=== PATIENT | female | born 1955 ===

== ENCOUNTER 2017-11-09 21:13 | Emergency (ER) | payer SELFPAY ==
[~2017-11-09] VITALS: Ht 165.1 cm; Wt 88.2 kg
[~2017-11-09 21:13] MED LIST: CEPHALEXIN500 M1 PO; DOXYCYCLINE 10100 MG PO; MOTRIN 200200 MG/TAB PO; NEXIUM 20MG20 MG PO; NO HOME MEDICATIONS; NORCO 325 MG-7.1 TAB PO; OCUFLOX OPHTH DR5 ML OS; PREDNISONE20 MG PO; TOBRADEX EYE O3.5 GM OP; TORADOL 10MG TA10 MG PO; TUSS PO; TYLENOL 500MG500 MG PO; ZITHROMAX Z PA250 MG PO
[2017-11-09 21:30] VITALS: BP 127/77; TEMP 98.2
[2017-11-09 22:49] LABS: COLLECTION METHOD CLEAN CATCH
[2017-11-09 22:55] LABS: MUCOUS Present /lpf; PH 7 (5-8); SQUAMOUS EPITHELIAL 0-2 /hpf; URINE APPEARANCE Clear; URINE BACTERIA None Seen /hpf; URINE BILIRUBIN Negative (NEGATIVE); URINE BLOOD Negative (NEGATIVE); URINE COLOR Straw; URINE GLUCOSE Negative (NEGATIVE); URINE KETONE Negative (NEGATIVE); URINE LEUKOCYTE ESTERASE Negative (NEGATIVE); URINE NITRATE Negative (NEGATIVE); URINE PROTEIN(semi-quant) Negative (NEGATIVE); URINE RBC 0-2 /hpf; URINE UROBILINOGEN Negative (NEGATIVE)
[2017-11-10 00:08] LABS: BASO # 0.1 (0.0-0.2); BASO % 0.5 % (0.0-2.0); EOS # 0.5 (0.0-0.7); EOS % 3.7 % (0-4.0); GRAN # 7.4 (1.4-6.5); GRAN % 57.7 % (42.2-75.2); HEMATOCRIT 44.7 % (37.0-47.0); LYMPH % 30.7 % (20.0-51.0); MEAN CELL VOLUME 88 fl (80.0-100.0); MEAN CORPUSCULAR HEMOGLOBIN 29 pg (27.0-31.0); MEAN CORPUSCULAR HGB CONC 34 g/dl (33.0-37.0); MEAN PLATELET VOLUME 9.7 fl (7.4-10.4); MONO # 0.9 (0.1-0.6); MONO % 7.2 % (1.7-9.3); PLATELET COUNT 233 K/mm3 (130-400); REDCELL DISTRIBUTION WIDTH-CV 14.1 % (11.5-14.5)
[2017-11-10 00:14] LABS: ALANINE AMINOTRANSFERASE 36 U/L (9-52); ALBUMIN 3.6 gm/dL (3.5-5.0); ALKALINE PHOSPHATASE 101 U/L (50-136); ANION GAP 12 mmol/L (7-16); AST,SGOT 20 U/L (15-37); BILIRUBIN,TOTAL 0.2 mg/dL (0.0-1.0); BLOOD UREA NITROGEN 11 mg/dL (7-17); CALCIUM 8.9 mg/dL (8.4-10.2); CARBON DIOXIDE 28 mmol/L (22-30); CHLORIDE 104 mmol/L (98-107); CREATININE, serum 0.85 mg/dL (0.52-1.25); GLUCOSE 109 mg/dL (74-106); LIPASE 86 U/L (23-300); POTASSIUM 4.6 mmol/L (3.4-5.0); SODIUM 144 mmol/L (137-145)
[2017-11-10 00:26] LABS: TROPONIN-I < 0.012 ng/mL (0.000-0.034)
[2017-11-10] MEDS ORDERED: NORCO 325 MG-51 TAB PO (01:36)
[2017-11-10 02:00] VITALS: PULSE 66
== END 2017-11-10 02:01 | disposition home or self-care (01) ==
LOC: COL.ER 21:13
PROVIDERS: Nurse Practitioner
DX: M54.6 Pain in thoracic spine (principal); Z88.6 Allergy status to analgesic agent
CPT/HCPCS: J1170

== ENCOUNTER 2019-05-31 12:41 | Emergency (ER) | payer MEDICARE ==
[~2019-05-31] VITALS: Ht 165.1 cm; Wt 87.7 kg
[~2019-05-31 12:41] MED LIST changes: +NORCO 325 MG-51 TAB PO
[2019-05-31 12:53] VITALS: TEMP 97.9
[2019-05-31] MEDS ORDERED: NAPRELAN500 MG PO (13:14)
[2019-05-31] MEDS ORDERED: NEURONTIN300 MG/CAP PO ×3 (13:57→15:02)
[2019-05-31] MEDS ORDERED: LIDODERM 5% PATC1 EA TP (13:57)
[2019-05-31 14:23] LABS: BASO % 0.4 % (0.0-2.0); EOS # 0.6 (0.0-0.7); EOS % 6.4 % (0-4.0); GRAN # 5.3 (1.4-6.5); GRAN % 55.6 % (42.2-75.2); HEMATOCRIT 48.2 % (37.0-47.0); HEMOGLOBIN 16.1 g/dl (12.5-16.0); LYMPH % 31.6 % (20.0-51.0); MEAN CELL VOLUME 89 fl (80.0-100.0); MEAN CORPUSCULAR HEMOGLOBIN 30 pg (27.0-31.0); MEAN CORPUSCULAR HGB CONC 33 g/dl (33.0-37.0); MEAN PLATELET VOLUME 9.7 fl (7.4-10.4); MONO # 0.6 (0.1-0.6); MONO % 5.8 % (1.7-9.3); PLATELET COUNT 209 K/mm3 (130-400); RED BLOOD COUNT 5.39 M/mm3 (4.10-5.30); REDCELL DISTRIBUTION WIDTH-CV 13.3 % (11.5-14.5)
[2019-05-31] MEDS ORDERED: NORCO 325 MG-51 TAB PO (14:42)
[2019-05-31 14:44] LABS: ALANINE AMINOTRANSFERASE 23 U/L (9-52); ALKALINE PHOSPHATASE 85 U/L (50-136); ANION GAP 8 mmol/L (7-16); AST,SGOT 23 U/L (15-37); BILIRUBIN,TOTAL 0.3 mg/dL (0.0-1.0); BLOOD UREA NITROGEN 18 mg/dL (7-17); CARBON DIOXIDE 26 mmol/L (22-30); CHLORIDE 107 mmol/L (98-107); CREATININE, serum 0.75 (0.52-1.25); GLUCOSE 107 mg/dL (74-106); POTASSIUM 4.4 mmol/L (3.4-5.0); SODIUM 141 mmol/L (137-145)
[2019-05-31 14:56] LABS: TROPONIN-I < 0.012 ng/mL (0.000-0.035)
[2019-05-31 15:29] VITALS: BP 126/75; PULSE 60
== END 2019-05-31 15:41 | disposition home or self-care (01) ==
LOC: COL.ER 12:41
PROVIDERS: Emergency Medicine
DX: M54.12 Radiculopathy, cervical region (principal)
CPT/HCPCS: J2270; J2405

== ENCOUNTER 2021-08-20 10:11 | Emergency (ER) | payer MEDICARE ==
[~2021-08-20] VITALS: Ht 160 cm; Wt 81.8 kg
[~2021-08-20 10:11] MED LIST changes: +LIDODERM 5% PATC1 EA TP; +NAPRELAN500 MG PO; +NEURONTIN300 MG/CAP PO
[2021-08-20 10:27] VITALS: TEMP 97.8
[2021-08-20 10:45] LABS: COLLECTION METHOD CLEAN CATCH
[2021-08-20 10:54] LABS: MUCOUS Present (NOT PRESENT); PH 7 (5-8); SQUAMOUS EPITHELIAL 0-2 /hpf (0-10); URINE APPEARANCE Clear (CLEAR/HAZY); URINE BACTERIA None Seen /hpf (NONE SEEN); URINE BILIRUBIN Negative (NEGATIVE); URINE BLOOD Negative (NEGATIVE); URINE COLOR Yellow (YELLOW); URINE GLUCOSE Negative (NEGATIVE); URINE KETONE Negative (NEGATIVE); URINE LEUKOCYTE ESTERASE Negative (NEGATIVE); URINE NITRATE Negative (NEGATIVE); URINE PROTEIN(semi-quant) Negative (NEGATIVE); URINE RBC 0-2 /hpf (0-2); URINE UROBILINOGEN Negative (NEGATIVE)
[2021-08-20 11:24] LABS: BASO # 0.1 K/mm3 (0.0-0.2); BASO % 0.5 % (0.0-2.0); EOS # 0.5 K/mm3 (0.0-0.7); EOS % 4.9 % (0.0-4.0); GRAN # 5.4 K/mm3 (1.4-6.5); GRAN % 59.3 % (42.2-75.2); HEMATOCRIT 45.9 % (37.0-47.0); HEMOGLOBIN 15.2 g/dl (12.5-16.0); LYMPH # 2.7 K/mm3 (1.2-3.4); LYMPH % 29.2 % (20.0-51.0); MEAN CELL VOLUME 88 fl (80.0-100.0); MEAN CORPUSCULAR HEMOGLOBIN 29 pg (27-31); MEAN CORPUSCULAR HGB CONC 33 g/dl (33.0-37.0); MEAN PLATELET VOLUME 9.7 fl (7.4-10.4); MONO # 0.5 K/mm3 (0.1-0.6); MONO % 5.9 % (1.7-9.3); PLATELET COUNT 213 K/mm3 (130-400); REDCELL DISTRIBUTION WIDTH-CV 13.4 % (11.5-14.5)
[2021-08-20 11:42] LABS: ALBUMIN 3.6 gm/dL (3.4-4.8); BILIRUBIN,TOTAL 0.7 mg/dL (0.2-1.2); C-REACTIVE PROTEIN 0.27 mg/dL (0.00-0.50); CALCIUM 8.7 mg/dL (8.4-10.2); CREATININE, serum 0.86 mg/dL (0.57-1.11); POTASSIUM 4.2 mmol/L (3.5-4.5); TOTAL PROTEIN 6.6 gm/dL (6.2-8.1)
[2021-08-20] MEDS ORDERED: MOBIC15 MG PO (13:03)
[2021-08-20 13:13] VITALS: BP 149/82; PULSE 60
== END 2021-08-20 13:13 | disposition home or self-care (01) ==
LOC: COL.ER 10:11
PROVIDERS: Family Medicine
DX: R10.32 Left lower quadrant pain (principal)
CPT/HCPCS: J2405; J7120; Q9967